=== PATIENT | female | born 1935 | race Caucasian/White ===

== ENCOUNTER → 2016-10-28 | Outpatient (CLI) | payer MEDICARE ==
--- NOTE | 2016-10-29 07:54 | MM ---
Reason for exam: screening (asymptomatic). Last mammogram was performed 1 year and 4 months ago. History: Patient is postmenopausal and has history of other cancer at age 72. Benign MG stereo VAD BX RT of the right breast, July 19, 2015. Benign excisional biopsy of the right breast. Took estrogen for 5 years. Physical Findings: A clinical breast exam by your physician is recommended on an annual basis and results should be correlated with mammographic findings. MG 3D Screening Mammo W/Cad Bilateral CC and MLO view(s) were taken. XCCL view(s) were taken of the right breast. Prior study comparison: July 13, 2015, right breast MG work up mamm w CAD RT. July 07, 2015, bilateral MG screening mammo w CAD. There are scattered fibroglandular densities. Finding: There are grouped/clustered calcifications in the right breast. Previous mammotome biopsy in the right breast. There is a chronic nodularity in the right breast. Targeted calcifications on right breast not biopsied. ASSESSMENT: Suspicious, BI-RAD 4 RECOMMENDATION: Stereotactic core biopsy of the right breast.
== END | disposition home or self-care (01) ==
LOC: RADMAMWWP 09:34
PROVIDERS: ATTEND Internal Medicine Geriatric Medicine
DX: Z12.31 Encounter for screening mammogram for malignant neoplasm of breast (principal); R92.8 Other abnormal and inconclusive findings on diagnostic imaging of breast
CPT/HCPCS: 77063; G0202

== ENCOUNTER → 2016-12-24 | Outpatient (CLI) | payer MEDICARE ==
[2016-12-24 12:19] LABS: Blood Urea Nitrogen 16 mg/dL (7-17); Non-African American GFR(MDRD) >60 (>60 ml/min/1.73 sqM)
--- NOTE | 2016-12-24 13:43 | CT ---
EXAMINATION TYPE: CT abdomen pelvis wo/w con DATE OF EXAM: 12/24/2016 HISTORY: Generalized pain with swelling around the waist x's [address] DLP: 1179.5mGycm Automated Exposure Control for Dose Reduction was Utilized. CONTRAST: CT scan of the abdomen and pelvis are performed with oral and without and with IV Contrast, patient i njected with 100 mL of Omnipaque 300. COMPARISON: None. FINDINGS: LUNG BASES: No significant abnormality is appreciated. LIVER/GB: There is a 3.6 x 3.0 cm heterogeneous hypodense lesion near gallbladder fossa that shows pr ogressive centripetal filling consistent with hemangioma. There is subcentimeter hypodense lesion pos terior right hepatic dome on image 18 is too small to further characterize per presumed benign. PANCREAS: No significant abnormality is seen. SPLEEN: No significant abnormality is seen. ADRENALS: There is 2.4 x 1.8 cm left adrenal mass on axial image 19, Hounsfield units average 11 on n oncontrast study. There is enhancement up to 79-85 with washout to 51-52 Hounsfield units. KIDNEYS: No renal stones are evident on noncontrast study. Postcontrast images show symmetric cortica l medullary uptake and excretion without evidence of hydronephrosis bilaterally. There is 1.0 cm low dense lesion suspected simple cyst medially lower pole level left kidney on series 8 image 36. BOWEL: Oral contrast reaches level of mid transverse colon. There is no suspicious small or large bow el dilatation. There is focal gas-filled prominence of the distal sigmoid colon near rectal junction. No obstructing mass is clearly seen. Sigmoid colonic diverticulosis is present. There is no CT evide nce for acute diverticulitis. UTERUS/ADNEXA: Uterus is surgically absent or markedly atrophic in appearance. Scattered pelvic phleb oliths are seen. LYMPH NODES: No greater than 1cm abdominal or pelvic lymph nodes are appreciated. OSSEOUS STRUCTURES: History is age indeterminate advanced compression type fracture deformity at T12 level. Some sclerosis is present but there is linear lucency also identified. There is posterior retr opulsion of superior bony fragment into spinal canal central and right paracentral region seen best o n sagittal image 65. OTHER: There is mild calcified plaque of the abdominal aorta and branch vessels. IMPRESSION: 1. No ascites is seen. No significant acute finding is seen to account for patient's symptoms. 2. Age-indeterminate but possible acute component to advanced compression type fracture at T12 level with some posterior retropulsion of ossific fragments into anterior spinal canal. Clinical correlatio n advised. 3. Nonspecific 2.4 cm left adrenal mass, malignant etiology is not excluded, further investigation wi th follow-up adrenal protocol CT or MRI is advised. 4. Sigmoid colonic diverticulosis without CT evidence for acute diverticulitis. 5. Incidental 3.6 cm hepatic hemangioma.
--- NOTE | 2016-12-24 14:03 | XR ---
Thoracic spine HISTORY: Pain 3 views of the thoracic spine, correlation to CT abdomen pelvis 12/24/2016 Compression deformity present at T12, loss of height centrally to approximately 50%. There is retropu lsion present. Multilevel spondylosis is present. Bone mineralization is reduced. The spinal curvatur e. IMPRESSION: T12 compression fracture of indeterminate age. Osteopenia, degenerative disc disease.
== END | disposition home or self-care (01) ==
LOC: RADCTMAIN 11:17
PROVIDERS: ATTEND Internal Medicine Geriatric Medicine
DX: K57.30 Diverticulosis of large intestine without perforation or abscess without bleeding (principal); D18.03 Hemangioma of intra-abdominal structures; S22.080A Wedge compression fracture of T11-T12 vertebra, initial encounter for closed fracture; M51.34 Other intervertebral disc degeneration, thoracic region; M85.88 Other specified disorders of bone density and structure, other site
CPT/HCPCS: 82565; 84520; 72072; 74178; 36415; Q9967

== ENCOUNTER → 2018-03-04 | Outpatient (CLI) | payer MEDICARE ==
--- NOTE | 2018-03-05 08:53 | MR ---
EXAMINATION TYPE: MR abdomen wo/w con DATE OF EXAM: 03/04/2018 COMPARISON: CT abdomen and pelvis January 30, 2018 and older CTs. HISTORY: Adrenal gland disorder, unspecified CONTRAST: Standard multiplanar, multisequence MRI departmental protocol utilizing 7 mL intravenous Gadavist esvin olinium contrast. FINDINGS: ADRENALS: Right adrenal gland is normal in size. There is redemonstration of left adrenal mass measur ing 2.5 x 2.0 cm axial image 66 series 303. The mass shows diffuse signal dropout consistent with sam ign lipid rich adenoma. OTHER: Mild cardiomegaly is redemonstrated. Within the liver there is redemonstration of a hemangioma measuring 3.0 x 3.0 x 3.3 cm on axial image 118 and coronal image 10 series 401 and 201 respectively . There are few additional round subcentimeter thin-walled cysts scattered throughout the remainder o f the liver. The spleen, gallbladder, and pancreas are felt within normal limits. There are a few simple appearing cysts scattered throughout the left kidney, largest is medial lower pole level without enhancement m easuring 1.2 cm image 133 series 701, not completely T2 hyperintense suggests possible small proteina ceous component. No suspicious small or large bowel dilatation is present. No concerning abdominal fluid collection is seen. Slight underlying scoliotic curvature with multilevel spurring in this thoracolumbar spine is noted. 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
== END | disposition home or self-care (01) ==
LOC: RADMRIMAIN 09:05
PROVIDERS: ATTEND Internal Medicine
DX: E27.8 Other specified disorders of adrenal gland (principal)
CPT/HCPCS: 74183; A9581

== ENCOUNTER → 2018-03-12 | Outpatient (CLI) | payer MEDICARE ==
--- NOTE | 2018-03-12 18:46 | BD ---
EXAMINATION TYPE: Axial Bone Density DATE OF EXAM: 03/12/2018 COMPARISON: 02.02.2016 CLINICAL HISTORY: 82 YR OLD FEMALE.....ICD-10 CODE: M81.0 AGE RELATED OSTEOPOROSIS Height: 60 Weight: 152 FRAX RISK QUESTIONS: History of Fracture in Adulthood: YES Secondary Osteoporosis: YES 3. Menopause before 45: YES, AT 41 RISK FACTORS HISTORY OF: FRACTURE OF FOOT AND ANKLE....2017 Diet low in dairy products/other sources of calcium: YES Postmenopausal woman: ELZBIETA 41 YRS OLD Lost more than 2 inches in height since high school: YES MEDICATIONS: RECLAST INFUSION 2 YRS AGO.....DUE FOR ANOTHER THIS YR Additional Medications: BP MEDS, CALCIUM AND VIT D, Additional History: PARATOID GLAND REMOVED, HYPERTENSION. EXAM MEASUREMENTS: Bone mineral densitometry was performed using the mktg System. Bone mineral density as measured about the Lumbar spine is: ----- L1-L4(G/cm2): 1.105 T Score Values are as follows: ----- L1: -1.1 ----- L2: -1.1 ----- L3: -0.4 ----- L4: -0.2 ----- L1-L4: -0.6 Bone mineral density has: Increased 1.4% since study of: 02.02.2016 Bone mineral density about the R hip (g/cm2): 0.891 Bone mineral density about the L hip (g/cm2): 0.808 T Score values are as follows: -----R Neck: -2.2 -----L Neck: -2.4 -----R Total: -0.9 -----L Total: -1.6 Bone mineral density has: Increased 0.2% since study of: 02.02.2016 FRAX%s: THERE IS A 25.5% CHANCE FOR A MAJOR OSTEOPOROTIC FX AND A 8.4% FOR HIP FX.....PROBABILITY OF FX IN 10 YRS TIME IMPRESSION: Osteopenia (T Score between -2.5 and -1). There is slightly increased risk of fracture and the patient may be considered for treatment. Re-Screen 2-5 years. NOTE: T-SCORE=SD OF THE YOUNG ADULT MEAN.
--- NOTE | 2018-03-13 11:59 | MM ---
Reason for exam: screening (asymptomatic). Last mammogram was performed 1 year and 4 months ago. History: Patient is postmenopausal and has history of other cancer at age 72. Benign MG stereo VAD BX RT of the right breast, July 19, 2015. Benign excisional biopsy of the right breast. Took estrogen for 5 years. Physical Findings: A clinical breast exam by your physician is recommended on an annual basis and results should be correlated with mammographic findings. MG 3D Screening Mammo W/Cad Bilateral CC and MLO view(s) were taken. Prior study comparison: October 28, 2016, bilateral MG 3d screening mammo w/cad. July 13, 2015, right breast MG work up mamm w CAD RT. The breast tissue is heterogeneously dense. This may lower the sensitivity of mammography. Stable benign calcifications. There is no discrete abnormality. No significant changes when compared with prior studies. ASSESSMENT: Benign, BI-RAD 2 RECOMMENDATION: Routine screening mammogram of both breasts in 1 year.
== END | disposition home or self-care (01) ==
LOC: RADMAMWWP 14:38
PROVIDERS: ATTEND Internal Medicine Geriatric Medicine
DX: Z12.31 Encounter for screening mammogram for malignant neoplasm of breast (principal); M85.80 Other specified disorders of bone density and structure, unspecified site; M81.0 Age-related osteoporosis without current pathological fracture
CPT/HCPCS: 77063; 77067; 77080

== ENCOUNTER → 2019-04-01 | Outpatient (CLI) | payer MEDICARE ==
--- NOTE | 2019-04-01 11:51 | FL ---
EXAMINATION TYPE: FL barium swallow DATE OF EXAM: 04/01/2019 CLINICAL HISTORY: Midsternal chest pain and dysphagia for 3 weeks TECHNIQUE: A double contrast esophagram is performed utilizing air and barium. A total of 1 minute and 32 seconds of fluoroscopic time was utilized during procedure. 37 fluoroscopic images were saved during the examination. COMPARISON: None FINDINGS: There is some impression on the posterior esophagus by anterior cervical osteophytes. Few t ransient esophageal spasms are seen otherwise the esophagus shows normal motility and emptying into t he stomach. No evidence of hiatal hernia or stricture noted. No significant gastroesophageal reflux was seen during real time performance of this study. IMPRESSION: Few transient esophageal spasm, otherwise unremarkable exam.
== END | disposition home or self-care (01) ==
LOC: RADUSWWP 10:47
PROVIDERS: ATTEND Internal Medicine Geriatric Medicine
DX: K22.4 Dyskinesia of esophagus (principal); Q40.1 Congenital hiatus hernia
CPT/HCPCS: 74220

== ENCOUNTER → 2019-04-09 | Outpatient (CLI) | payer MEDICARE ==
--- NOTE | 2019-04-12 09:09 | MM ---
Reason for exam: screening (asymptomatic). Last mammogram was performed 1 year and 1 month ago. History: Patient is postmenopausal and has history of other cancer at age 72. Benign MG stereo VAD BX RT of the right breast, July 19, 2015. Benign excisional biopsy of the right breast. Took estrogen for 5 years. Physical Findings: A clinical breast exam by your physician is recommended on an annual basis and results should be correlated with mammographic findings. MG 3D Screening Mammo W/Cad Bilateral CC and MLO view(s) were taken. Prior study comparison: March 12, 2018, bilateral MG 3d screening mammo w/cad. October 28, 2016, bilateral MG 3d screening mammo w/cad. The breast tissue is heterogeneously dense. This may lower the sensitivity of mammography. Benign appearing bilateral calcifications. No suspicious abnormality. Right biopsy marker noted. No significant changes when compared with prior studies. ASSESSMENT: Benign, BI-RAD 2 RECOMMENDATION: Routine screening mammogram of both breasts in 1 year.
== END | disposition home or self-care (01) ==
LOC: RADMAMWWP 10:46
PROVIDERS: ATTEND Internal Medicine Geriatric Medicine
DX: Z12.31 Encounter for screening mammogram for malignant neoplasm of breast (principal)
CPT/HCPCS: 77063; 77067

== ENCOUNTER 2020-12-04 11:44 | Emergency (ER) | payer MEDICARE ==
[2020-12-04 11:49] VITALS: TEMP 97.7
[2020-12-04] MEDS ORDERED: ASPIRIN 81 MG PO STA (12:21)
[2020-12-04] MEDS ORDERED: KETOROLAC 15 MG/ML 1 ML VIAL IVP STA (12:22)
--- NOTE | 2020-12-04 13:01 | XR ---
EXAMINATION TYPE: XR chest 1V portable DATE OF EXAM: 12/04/2020 HISTORY: Shortness of breath. COMPARISON: None. TECHNIQUE: Single view of the chest is submitted. FINDINGS: Demonstrated are scattered senescent parenchymal change. There is no evidence for focal infiltrate. The heart is stable. Hilar and mediastinal structures are within normal limits. Degenerative changes are seen of the dorsal spine. IMPRESSION: 1. Chronic changes without evidence for acute pulmonary disease.
[2020-12-04 13:20] LABS: Basophils % (A) 0 %; Eosinophils # (A) 0.1 k/uL (0-0.7); Eosinophils % (A) 2 %; HCT 37.3 % (34.0-46.0); HGB 13.2 gm/dL (11.4-16.0); Lymphocytes # (A) 2.2 k/uL (1.0-4.8); Lymphocytes % (A) 30 %; MCH 31.7 pg (25.0-35.0); MCHC 35.4 g/dL (31.0-37.0); MCV 89.6 fL (80.0-100.0); Mean Platelet Volume 7.4; Monocytes # (A) 0.4 k/uL (0-1.0); Monocytes % (A) 5 %; Neutrophils # (A) 4.7 k/uL (1.3-7.7); Neutrophils % (A) 62 %; Platelet Count 248 k/uL (150-450); RBC 4.17 m/uL (3.80-5.40); RDW 12.9 % (11.5-15.5); WBC 7.5 k/uL (3.8-10.6)
[2020-12-04 13:36] LABS: Albumin 4.8 g/dL (3.5-5.0); Calcium 10.3 mg/dL (8.4-10.2); Total Bilirubin 0.6 mg/dL (0.2-1.3); Total Protein 7.3 g/dL (6.3-8.2)
[2020-12-04 13:40] LABS: Potassium 3.9 mmol/L (3.5-5.1)
--- NOTE | 2020-12-04 13:40 | ED ---
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 She describes it as an achy, sharp sensation located in her left neck along one of her neck muscles that is palpable. She states it is worse with head movement, particularly turning to the right Cusson's a stretching sensation. She denies any radiation of the pain down into her back or chest. She states she did feel somewhat short of breath earlier. She also describes subjective bilateral upper extremity weakness when the pain started earlier. She denies any fevers, chills, sick contacts. She denies any numbness, weakness otherwise. She was able to ambulate. Denies any worsening blurry vision. She denies any abdominal pain, nausea, vomiting, urinary complaints. Patient otherwise has no acute complaints at this time is concerned about the pain in her neck. She called her PCP who instructed her to come to the emergency department for an EKG. patient did receive her COVID-19 vaccination multiple months ago, completing both doses. - Related Data Home Medications Medication Instructions Recorded Confirmed Multivitamins, Thera [Multivitamin] 1 tab PO HS 05/06/14 12/04/20 Calcium Carbonate/Vitamin D3 1 tab PO HS 07/17/15 12/04/20 [Calcium 600 + Vit D Tablet] Biotin 10,000 mcg PO HS 12/04/20 12/04/20 Chlorthalidone [Hygroton] 25 mg PO Q48H 12/04/20 12/04/20 Valsartan 320 mg PO DAILY 12/04/20 12/04/20 amLODIPine [Norvasc] 10 mg PO DAILY 12/04/20 12/04/20 lamoTRIgine [LaMICtal] 100 mg PO BID 12/04/20 12/04/20 Previous Rx's Medication Instructions Recorded Ibuprofen [Motrin] 800 mg PO Q8H PRN #21 tab 12/04/20 Lidocaine 5% Patch [Lidoderm 5% 1 patch TOPICAL DAILY #7 patch 12/04/20 Patch] methocarbamoL [Robaxin] 1,000 mg PO TID #42 tab 12/04/20 Allergies Allergy/AdvReac Type Severity Reaction Status Date / Time No Known Allergies Allergy Verified 12/04/20 12:45 Review of Systems ROS Statement: Those systems with pertinent positive or pertinent negative responses have been documented in the HPI. Review of Systems: CONST: Denies fever EYES: Denies blurry vision ENT: Endorses neck pain C/V: Denies Chest pain RESP: Endorses subjective shortness of breath GI: Denies abdominal pain : Denies dysuria SKIN: Denies rash. MSK: Denies joint pain. NEURO: Denies headache ROS Other: All systems not noted in ROS Statement are negative. 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 HEAD: Normal with no signs of head trauma. EYES: PERRLA, EOMI, conjunctiva normal, no discharge. ENT: Hearing is grossly intact. Patient has a normal oropharynx. It has a p alpable left trapezius muscle tenderness to palpation over the superior aspect. It is worse with turning of the head to the right into the left. No obvious masses appreciated. Trachea is midline. No stridor auscultated. RESPIRATORY: Clear breath sounds bilaterally. No wheezes, rales, or rhonchi. C/V: Patient is mildly tachycardic with regular rhythm. S1 and S2 auscultated. Peripheral pulses are 2+ and intact throughout. No peripheral edema. ABD: Abd is soft, nontender, nondistended EXT: Normal range of motion, no obvious deformity SKIN: No rashes or lesions observed on exposed skin. NEURO: Alert and oriented 4. Cranial nerves II through XII intact. No focal sensory or strength deficits. Patient's cerebellar function is intact. Pupils are 3 mm and equally reactive. Patient has 5 out of 5 strength in all 4 extremity. Limitations: physical limitation Course Vital Signs 12/04/20 12/04/20 12/04/20 11:45 12:15 12:54 Temperature 97.7 F Pulse Rate 105 H 86 Pulse Rate [ 86 [employer]er ] Respiratory 18 16 Rate Blood Pressure 161/78 145/98 O2 Sat by Pulse 99 98 Oximetry 12/04/20 12/04/20 14:01 15:40 Temperature Pulse Rate 80 75 Pulse Rate [ [employer]er ] Respiratory 18 18 Rate Blood Pressure 134/65 122/60 O2 Sat by Pulse 97 98 Oximetry EKG Findings - EKG Comments: EKG Findings:: 12-lead Electrocardiogram Interpretation Note. EKG was reviewed and interpreted by myself. 12-lead ECG performed at 1154 is interpreted by me as revealing normal sinus rhythm at a rate of default value beats per minute. Normal sinus rhythm. NE interval is 180 ms, QRS duration is 72 ms, QTc is 442 ms. There were no ST or T wave abnormalities to suggest myocardial ischemia or injury. R wave progression across the precordium was satisfactory. By my interpretation this EKG is non-diagnostic for acute ischemia. Medical Decision Making - Medical Decision Making Based on the patient's presentation and physical exam, concerned for possible cardiac etiology for her current neck pain and dyspnea but I cannot rule out the possibility of pulmonary embolism with her dyspnea. It is possible she is expr essing a musculoskeletal strain or sprain. I did recommend we obtain a cardiac workup which includes a d-dimer as the patient is low risk. She does not PERC out. Wells score for PE is low at 1.5. She'll be connected to continuous cardiac monitoring. We will obtain EKG and chest x-ray. Patient was in agreement with this plan. Patient's EKG showed no signs of acute ischemia. Chest x-ray revealed no acute cardio primary process. Laboratory studies were remarkable for a negative troponin, a mild hypercalcemia at 10.3, as well as in elevated ddimer of 0.89. This spoke with the patient regarding her elevated d-dimer and I recommended that we obtain a CT angiogram of the thorax to rule out pulmonary embolism. The salicylates is slightly evaluate her aorta. She was in agreement with this plan. Patient's CT angiogram was negative for acute pulmonary embolism. Patient does endorse metastatic disease as she does have a history of lesions in her liver with her history of cancer. On reevaluation, patient is feeling improved. She states that her weakness has resolved and says her shortness of breath. She states that her neck discomfort is also improved at this time and she has better range of motion of her left shoulder. We did discuss that she is likely experiencing a musculoskeletal cause for her current symptoms. The remainder of the patient's laboratory studies were relatively unremarkable and the cardiac workup is negative. I spoke with the patient and explained that I believe it is safe for her to be discharged home at this time. She was in agreement with the plan. I did recommend close follow-up with her PCP. I will provide the patient with a prescription for Robaxin, lidocaine patch, ibuprofen. I instructed the patient to follow up with their PCP in the next 3 days. . I explained that the patient should return to the emergency department if they experience any worsening symptoms. Strict return precautions were discussed with the patient. The patient expressed understanding of these instructions. I answered all questions that the patient had. The patient was discharged home in improved condition with their prescriptions and follow up information. - Lab Data Result diagrams: 12/04/20 12:30 12/04/20 12:30 Lab Results 12/04/20 12/04/20 12/04/20 Range/Units 12:30 12:30 12:30 WBC 7.5 (3.8-10.6) k/uL RBC 4.17 (3.80-5.40) m/uL Hgb 13.2 (11.4-16.0) gm/dL Hct 37.3 (34.0-46.0) % MCV 89.6 (80.0-100.0) fL MCH 31.7 (25.0-35.0) pg MCHC 35.4 (31.0-37.0) g/dL RDW 12.9 (11.5-15.5) % Plt Count 248 (150-450) k/uL MPV 7.4 Neutrophils % 62 % Lymphocytes % 30 % Monocytes % 5 % Eosinophils % 2 % Basophils % 0 % Neutrophils # 4.7 (1.3-7.7) k/uL Lymphocytes # 2.2 (1.0-4.8) k/uL Monocytes # 0.4 (0-1.0) k/uL Eosinophils # 0.1 (0-0.7) k/uL Basophils # 0.0 (0-0.2) k/uL PT 10.0 (9.0-12.0) sec INR 0.9 (<1.2) APTT 22.1 (22.0-30.0) sec D-Dimer 0.89 H (<0.60) mg/L FEU Sodium 135 L (137-145) mmol/L Potassium 3.9 (3.5-5.1) mmol/L Chloride 98 (98-107) mmol/L Carbon Dioxide 26 (22-30) mmol/L Anion Gap 11 mmol/L BUN 18 H (7-17) mg/dL Creatinine 0.97 (0.52-1.04) mg/dL Est GFR (CKD-EPI)AfAm 62 (>60 ml/min/1.73 sqM) Est GFR (CKD-EPI)NonAf 54 (>60 ml/min/1.73 sqM) Glucose 97 (74-99) mg/dL Calcium 10.3 H (8.4-10.2) mg/dL Magnesium 2.0 (1.6-2.3) mg/dL Total Bilirubin 0.6 (0.2-1.3) mg/dL AST 28 (14-36) U/L ALT 14 (4-34) U/L Alkaline Phosphatase 83 (38-126) U/L Troponin I (0.000-0.034) ng/mL NT-Pro-B Natriuret Pep pg/mL Total Protein 7.3 (6.3-8.2) g/dL Albumin 4.8 (3.5-5.0) g/dL 12/04/20 12/04/20 Range/Units 12:30 12:30 WBC (3.8-10.6) k/uL RBC (3.80-5.40) m/uL Hgb (11.4-16.0) gm/dL Hct (34.0-46.0) % MCV (80.0-100.0) fL MCH (25.0-35.0) pg MCHC (31.0-37.0) g/dL RDW (11.5-15.5) % Plt Count (150-450) k/uL MPV Neutrophils % % Lymphocytes % % Monocytes % % Eosinophils % % Basophils % % Neutrophils # (1.3-7.7) k/uL Lymphocytes # (1.0-4.8) k/uL Monocytes # (0-1.0) k/uL Eosinophils # (0-0.7) k/uL Basophils # (0-0.2) k/uL PT (9.0-12.0) sec INR (<1.2) APTT (22.0-30.0) sec D-Dimer (<0.60) mg/L FEU Sodium (137-145) mmol/L Potassium (3.5-5.1) mmol/L Chloride (98-107) mmol/L Carbon Dioxide (22-30) mmol/L Anion Gap mmol/L BUN (7-17) mg/dL Creatinine (0.52-1.04) mg/dL Est GFR (CKD-EPI)AfAm (>60 ml/min/1.73 sqM) Est GFR (CKD-EPI)NonAf (>60 ml/min/1.73 sqM) Glucose (74-99) mg/dL Calcium (8.4-10.2) mg/dL Magnesium (1.6-2.3) mg/dL Total Bilirubin (0.2-1.3) mg/dL AST (14-36) U/L ALT (4-34) U/L Alkaline Phosphatase (38-126) U/L Troponin I <0.012 (0.000-0.034) ng/mL NT-Pro-B Natriuret Pep 152 pg/mL Total Protein (6.3-8.2) g/dL Albumin (3.5-5.0) g/dL Disposition Clinical Impression: Musculoskeletal pain, Dyspnea, Neck pain, History of cancer Disposition: HOME SELF-CARE Condition: Good Prescriptions: Lidocaine 5% Patch [Lidoderm 5% Patch] 1 patch TOPICAL DAILY #7 patch Ibuprofen [Motrin] 800 mg PO Q8H PRN #21 tab PRN Reason: Pain methocarbamoL [Robaxin] 1,000 mg PO TID #42 tab Is patient prescribed a controlled substance at d/c from ED?: No Referrals: Philip Whitehead MD [Primary Care Provider] - 1-2 days
[2020-12-04 13:43] LABS: INR 0.9 (<1.2); Partial Thromboplastin Time 22.1 sec (22.0-30.0)
[2020-12-04 13:49] LABS: D-Dimer 0.89 mg/L FEU (<0.60)
[2020-12-04] MEDS ORDERED: methocarbamoL 750 MG TAB PO STA (13:57)
[2020-12-04 14:01] VITALS: RESP 18
--- NOTE | 2020-12-04 14:37 | CT ---
EXAMINATION TYPE: CT angio chest DATE OF EXAM: 12/04/2020 COMPARISON: None HISTORY: Elevated d-dimer CONTRAST: CT chest with contrast and 3D reconstruction with MIP imaging is performed with IV Contrast, patient injected with 100 mL of Isovue 370. Contrast-enhanced CT of the chest was performed through the course of the pulmonary arteries with marlin g and mediastinal window settings submitted. 3D reconstruction with MIP imaging was also performed. PULMONARY ARTERIES: The pulmonary arteries and their major tributaries are patent. I do not see betsy dence for sizable filling defect to suggest pulmonary embolic process. LUNGS: The lungs are clear and free of infiltrate. No evidence for atelectasis. No pulmonary nodule or mass is detected. No pleural effusion. MEDIASTINUM: Thoracic aorta is of normal caliber,however, evaluation is limited given timing of the contrast bolus. If there is concern for thoracic aortic pathology consider RHODA. Correlate clinicall y . The heart is not enlarged. No evidence for mediastinal mass. No mediastinal lymph nodes greater than 1cm. HILAR STRUCTURES: No evidence for mass. No hilar lymph nodes greater than 1 cm. UPPER ABDOMEN: Hypoattenuating lesions are seen within the liver which do not appear compatible with cysts. Is there a history of primary malignancy? Metastatic disease is not excluded. In addition ther e is a left adrenal mass measuring 3 cm. Stable compression fracture of T12 seen on prior CT of 018. IMPRESSION: 1. No evidence for Pulmonary embolism at this time. 2. Correlate for metastatic disease as discussed above.
[2020-12-04 15:41] VITALS: BP 122/60; PULSE 75
== END 2020-12-04 15:41 | disposition home or self-care (01) ==
LOC: EC 11:44
DX: R06.00 Dyspnea, unspecified (principal); M54.2 Cervicalgia; M79.18 Myalgia, other site; I10 Essential (primary) hypertension; G40.909 Epilepsy, unspecified, not intractable, without status epilepticus; M81.0 Age-related osteoporosis without current pathological fracture; Z79.1 Long term (current) use of non-steroidal anti-inflammatories (NSAID); Z79.899 Other long term (current) drug therapy; Z85.818 Personal history of malignant neoplasm of other sites of lip, oral cavity, and pharynx
CPT/HCPCS: 36415; 93005; 85379; 83880; 80053; 83735; 84484; 85025; 85610; 85730; 71045; 71275; 99285; 96374; J1885; Q9967

== ENCOUNTER → 2022-03-27 | Outpatient (CLI) | payer MEDICARE ==
--- NOTE | 2022-03-27 11:29 | BD ---
EXAMINATION TYPE: Axial Bone Density DATE OF EXAM: 03/27/2022 COMPARISON: 03/12/2018 CLINICAL HISTORY: 86 years year old Female. ICD-10 CODE: M81.0 Osteoporosis Height: 59.7 IN Weight: 144 LBS FRAX RISK QUESTIONS: History of Fracture in Adulthood: RT FOOT FX AGE 81 Secondary Osteoporosis: 3. Menopause before 45: TOTAL HYST AGE 44 RISK FACTORS HISTORY OF: Active: YES Diet low in dairy products/other sources of calcium: YES Postmenopausal woman: TOTAL HYST AGE 44 Take estrogen and/or progesterone medications: NOT NOW How long: TOOK FOR 2 YEARS Lost more than 2 inches in height since high school: YES 3 " MEDICATIONS: Additional Medications: CALCIUM, VIT D, BLOOD PRESSURE MEDS, LIPITOR, SEIZURE MEDS Additional History: [facility] EXAM MEASUREMENTS: Bone mineral densitometry was performed using the [employer] System. Bone mineral density as measured about the Lumbar spine is: ----- L1-L4(G/cm2): 1.069 T Score Values are as follows: ----- L1: -1.8 ----- L2: -1.3 ----- L3: -0.9 ----- L4: -0.2 ----- L1-L4: -0.9 Bone mineral density has: Decreased -2.0% since study of: 03/12/2018 Bone mineral density about the R hip (g/cm2): 0.718 Bone mineral density about the L hip (g/cm2): 0.657 T Score values are as follows: -----R Neck: -2.3 -----L Neck: -2.7 -----R Total: -1.1 -----L Total: -1.7 Bone mineral density has: Decreased -2.5% since study of: 03/12/2018 FRAX%s: The graph provided illustrates a 26.8 chance for a major osteoporotic fx and a 9.6 chance for the hips probability for fx in 10 years time. IMPRESSION: Osteopenia (T Score between -2.5 and -1). There is slightly increased risk of fracture and the patient may be considered for treatment. Re-Screen 2-5 years. NOTE: T-SCORE=SD OF THE YOUNG ADULT MEAN.
--- NOTE | 2022-03-28 21:16 | MM ---
Reason for Exam: Screening (asymptomatic). Last mammogram was performed 3 year(s) and 0 month(s) ago. Patient History: Menarche at age 12. First Full-Term at age 21. Hysterectomy at age 36. Postmenopausal. Other cancer, age 72. Patient used Estrogen for 5 years. Benign Excisional Biopsy on the right side. 07/19/2015, Benign Core Biopsy on the right side. Prior Study Comparison: 10/28/2016 Bilateral Screening Mammogram, [facility]. 03/12/2018 Bilateral Screening Mammogram, [facility]. 04/09/2019 Bilateral Screening Mammogram, [facility]. Tissue Density: There are scattered fibroglandular densities. Findings: Analyzed By CAD. Benign vascular calcifications on both sides. Small microcalcifications upper outer quadrant right breast with adjacent microclip from prior biopsy. No significant change from prior exams. Overall Assessment: Benign, BI-RAD 2 Management: Screening Mammogram of both breasts in 1 year. 1. Patient should continue monthly self breast exams. 2. A clinical breast exam by your physician is recommended on an annual basis. 3. This exam should not preclude additional follow-up of suspicious palpable abnormalities. Electronically signed and approved by: Janette Mathis M.D. Radiologist
== END | disposition home or self-care (01) ==
LOC: RADBDWWP 09:48
PROVIDERS: ATTEND Internal Medicine Geriatric Medicine
DX: Z12.31 Encounter for screening mammogram for malignant neoplasm of breast (principal); M85.89 Other specified disorders of bone density and structure, multiple sites
CPT/HCPCS: 77063; 77067; 77080

== ENCOUNTER → 2023-03-31 | Outpatient (CLI) | payer MEDICARE ==
--- NOTE | 2023-03-31 09:59 | MM ---
Reason for Exam: Screening (asymptomatic). Last screening mammogram was performed 12 month(s) ago. Patient History: Menarche at age 12. First Full-Term at age 21. Hysterectomy at age 36. Postmenopausal. Other cancer, age 72. Patient used Estrogen for 5 years. Benign Excisional Biopsy on the right side. 07/19/2015, Benign Core Biopsy on the right side. Prior Study Comparison: 03/12/2018 Bilateral Screening Mammogram, [facility]. 04/09/2019 Bilateral Screening Mammogram, [facility]. 03/27/2022 Bilateral MG 3D screening mammo w/cad, [facility]. Tissue Density: The breast tissue is heterogeneously dense. This may lower the sensitivity of mammography. Findings: Analyzed By CAD. Right breast biopsy clip. There is no suspicious group of microcalcifications or new suspicious mass. Benign-appearing calcifications right breast. Overall Assessment: Benign, BI-RAD 2 Management: Screening Mammogram of both breasts in [address] [facility] will attempt to contact patient to return for supplemental views and ultrasound if indicated. Patient should continue monthly self-breast exams. A clinical breast exam by your physician is recommended on an annual basis. This exam should not preclude additional follow-up of suspicious palpable abnormalities. Note on Lila scores and lifetime risk: 1. A Lila score greater than 3% is considered moderate risk. If this is the case, consider specialist referral to assess eligibility for a risk reducing agent. 2. If overall lifetime risk for the development of breast cancer is 20% or higher, the patient may qualify for future screening with alternating mammogram and breast MRI. Electronically signed and approved by: Delfino Dupree DO
== END | disposition home or self-care (01) ==
LOC: RADMAMWWP 09:30
PROVIDERS: ATTEND Internal Medicine Geriatric Medicine
DX: Z12.31 Encounter for screening mammogram for malignant neoplasm of breast (principal); Z78.0 Asymptomatic menopausal state
CPT/HCPCS: 77063; 77067

== ENCOUNTER 2024-02-21 17:44 | Emergency (ER) | payer MEDICARE ==
--- NOTE | 2024-02-21 18:16 | ED ---
General Adult HPI - General Chief complaint: Recheck/Abnormal Lab/Rx Stated complaint: Hypertension Time Seen by Provider: 02/21/24 17:46 Source: patient, EMS, RN notes reviewed, old records reviewed Mode of arrival: EMS Limitations: no limitations - History of Present Illness Initial comments: 88-year-old female presents from home with chief complaint of hypertension. Patient does have history of hypertension she is on multiple medications which she has been compliant with. She denies chest pain. She reports she has had some palpitations and does report a headache throughout the day today. States her blood pressure at home was 200/100. No chest pain. No dyspnea. No focal numbness or weakness. - Related Data Home Medications Medication Instructions Recorded Confirmed Atorvastatin [Lipitor] 10 mg PO DAILY 02/21/24 02/21/24 Calcium Carbonate/Vitamin D3 1 tab PO HS 02/21/24 02/21/24 [Calcium 600 mg-D3 20 mcg (800 unit)] Multivitamin With Collagen 3 tab PO DAILY 02/21/24 02/21/24 Valsartan [Diovan] 160 mg PO DAILY 02/21/24 02/21/24 Vit C/E/Zn/Coppr/Lutein/Zeaxan 1 cap PO BID 02/21/24 02/21/24 [Preservision Areds 2 Softgel] amLODIPine [Norvasc] 5 mg PO DAILY 02/21/24 02/21/24 hydroCHLOROthiazide [Hydrodiuril] 12.5 mg PO DAILY 02/21/24 02/21/24 lamoTRIgine [LaMICtal] 150 mg PO BID 02/21/24 02/21/24 Allergies Allergy/AdvReac Type Severity Reaction Status Date / Time No Known Allergies Allergy Verified 02/21/24 18:36 Review of Systems ROS Statement: Those systems with pertinent positive or pertinent negative responses have been documented in the HPI. ROS Other: All systems not noted in ROS Statement are negative. 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 Absent: tenderness, meningismus Respiratory exam: Present: normal lung sounds bilaterally. Absent: respiratory distress, wheezes, rales Cardiovascular Exam: Present: regular rate, normal rhythm GI/Abdominal exam: Present: soft. Absent: distended, tenderness, guarding Extremities exam: Present: normal inspection, normal capillary refill Neurological exam: Present: alert, oriented X3, CN II-XII intact. Absent: motor sensory deficit Psychiatric exam: Present: normal affect, normal mood Skin exam: Present: warm, dry, intact. Absent: cyanosis, diaphoretic Course Vital Signs 02/21/24 02/21/24 02/21/24 17:48 17:55 19:25 Temperature 98.6 F 98.9 F Pulse Rate 93 86 96 Respiratory 17 17 17 Rate Blood Pressure 178/86 170/80 187/89 O2 Sat by Pulse 97 98 95 Oximetry Medical Decision Making - Medical Decision Making Was pt. sent in by a medical professional or institution (, PA, SPORTS JOURNALIST, urgent care, hospital, or [facility]...) When possible be specific @ -No Did you speak to anyone other than the patient for history (EMS, parent, family, police, friend...)? What history was obtained from this source @ -No Did you review nursing and triage notes (agree or disagree)? Why? @ -I reviewed and agree with nursing and triage notes Were old charts reviewed (outside hosp., previous admission, EMS record, old EKG, old radiological studies, urgent care reports/EKG's, [facility] records)? Report findings @ -No old charts were reviewed Differential Diagnosis hypertensive urgency, hypertensive emergency, intracranial hemorrhage. EKG interpreted by me (3pts min.). @ -Sinus Rhythm rate of 82, WA interval 192, QRS duration 78, QTc 393, ST segment elevation X-rays interpreted by me (1pt min.). @ -None done CT interpreted by me (1pt min.). @ -CT brain without contrast showing right temporal occipital hyperdensity consistent with intracranial hemorrhage U/S interpreted by me (1pt. min.). @ -None done What testing was considered but not performed or refused? (CT, X-rays, U/S, labs)? Why? @ -None What meds were considered but not given or refused? Why? @ -None Did you discuss the management of the patient with other professionals (professionals i.e. , PA, SPORTS JOURNALIST, lab, RT, psych nurse, nursing home social worker, fingernail technician, teacher, credit administration officer, case sealer)? Give summary @ -Case discussed with the transfer team at [facility], Dr. Field, will accept admission recommends systolic blood pressure less than 160 Was smoking cessation discussed for >3mins.? @ -No Was critical care preformed (if so, how long)? @ -Yes, 35 minutes Were there social determinants of health that impacted care today? How? (Homelessness, low income, unemployed, alcoholism, drug addiction, transportation, low edu. Level, literacy, decrease access to med. care, longterm, rehab)? @ -No Was there de-escalation of care discussed even if they declined (Discuss DNR or withdrawal of care, Hospice)? DNR status @ -No What co-morbidities impacted this encounter? (DM, HTN, Smoking, COPD, CAD, Cancer, CVA, ARF, Chemo, Hep., AIDS, mental health diagnosis, sleep apnea, morbid obesity)? @ -[Hypertension, reported history of meningioma Was patient admitted / discharged? Hospital course, mention meds given and route, prescriptions, significant lab abnormalities, going to OR and other pertinent info. @ -88-year-old female history of hypertension presenting with elevated blood pressure and headache. Headache has been present for the past 16+ hours. No focal numbness or weakness. NIH of 0. Patient is hypertensive but well- appearing. She is alert, interactive GCS 15. Minimal complaints she has EKG shows sinus rhythm. Normal CBC, CMP shows hyponatremia [address] Head [address] is performed which does show possibility of intracranial hemorrhage in the right temporal occipital lobe measuring less than 1 cm without midline shift. Given CT findings she will be transferred to [facility], for further evaluation and treatment. She is started on Cardene and given Keppra. Undiagnosed new problem with uncertain prognosis? @ -[No Drug Therapy requiring intensive monitoring for toxicity (Heparin, Nitro, Insulin, Cardizem)? @ -No Were any procedures done? @ -No Diagnosis/symptom? @ -Hypertension, intracranial hemorrhage Acute, or Chronic, or Acute on Chronic? @ -[acute Uncomplicated (without systemic symptoms) or Complicated (systemic symptoms)? @ -complicated Side effects of treatment? @ -No Exacerbation, Progression, or Severe Exacerbation? @ -No Poses a threat to life or bodily function? How? (Chest pain, USA, CA, pneumonia, PE, COPD, DKA, ARF, appy, cholecystitis, CVA, Diverticulitis, Homicidal, Suicidal, threat to staff... and all critical care pts) @ -yes, ICH - Lab Data Result diagrams: 02/21/24 18:07 02/21/24 18:07 Lab Results 02/21/24 02/21/24 02/21/24 Range/Units 18:07 18:07 18:07 WBC 7.9 (3.8-10.6) k/uL RBC 4.14 (3.80-5.40) m/uL Hgb 12.7 (11.4-16.0) gm/dL Hct 37.7 (34.0-46.0) % MCV 90.9 (80.0-100.0) fL MCH 30.7 (25.0-35.0) pg MCHC 33.8 (31.0-37.0) g/dL RDW 12.7 (11.5-15.5) % Plt Count 206 (150-450) k/uL MPV 6.8 Neutrophils % 78 % Lymphocytes % 15 % Monocytes % 6 % Eosinophils % 0 % Basophils % 0 % Neutrophils # 6.2 (1.3-7.7) k/uL Lymphocytes # 1.2 (1.0-4.8) k/uL Monocytes # 0.4 (0-1.0) k/uL Eosinophils # 0.0 (0-0.7) k/uL Basophils # 0.0 (0-0.2) k/uL Sodium 128 L (137-145) mmol/L Potassium 3.7 (3.5-5.1) mmol/L Chloride 94 L (98-107) mmol/L Carbon Dioxide 27 (22-30) mmol/L Anion Gap 7 mmol/L BUN 19 H (7-17) mg/dL Creatinine 0.66 (0.52-1.04) mg/dL Est GFR (CKD-EPI)AfAm >90 (>60 ml/min/1.73 sqM) Est GFR (CKD-EPI)NonAf 79 (>60 ml/min/1.73 sqM) Glucose 102 H (74-99) mg/dL Calcium 9.3 (8.4-10.2) mg/dL Total Bilirubin 1.0 (0.2-1.3) mg/dL AST 25 (14-36) U/L ALT 17 (4-34) U/L Alkaline Phosphatase 67 (38-126) U/L Troponin I <0.012 (0.000-0.034) ng/mL Total Protein 6.4 (6.3-8.2) g/dL Albumin 4.3 (3.5-5.0) g/dL Disposition Clinical Impression: ICH (intracerebral hemorrhage), Hypertensive emergency Disposition: ADMITTED IP TO THIS HOSP Condition: Serious Is patient prescribed a controlled substance at d/c from ED?: No Referrals: Philip Whitehead MD [Primary Care Provider] - 1-2 days Time of Disposition: 19:48 - Out of Hospital Transfer - Req. Specs Out of Hospital Transfer - Requested Specifics: Neurological ICU (Zeferino Sanabria)
[2024-02-21] MEDS: amLODIPine 5 MG TAB PO STA (18:17)
[2024-02-21 18:34] LABS: Basophils % (A) 0 %; Eosinophils % (A) 0 %; HCT 37.7 % (34.0-46.0); HGB 12.7 gm/dL (11.4-16.0); Lymphocytes # (A) 1.2 k/uL (1.0-4.8); Lymphocytes % (A) 15 %; MCH 30.7 pg (25.0-35.0); MCHC 33.8 g/dL (31.0-37.0); MCV 90.9 fL (80.0-100.0); Mean Platelet Volume 6.8; Monocytes # (A) 0.4 k/uL (0-1.0); Monocytes % (A) 6 %; Neutrophils # (A) 6.2 k/uL (1.3-7.7); Neutrophils % (A) 78 %; Platelet Count 206 k/uL (150-450); RBC 4.14 m/uL (3.80-5.40); RDW 12.7 % (11.5-15.5); WBC 7.9 k/uL (3.8-10.6)
[2024-02-21 18:42] LABS: ALT 17 U/L (4-34); AST 25 U/L (14-36); African American GFR (CKD) >90 (>60 ml/min/1.73 sqM); Albumin 4.3 g/dL (3.5-5.0); Alkaline Phosphatase 67 U/L (38-126); Anion Gap 7 mmol/L; Blood Urea Nitrogen 19 mg/dL (7-17); Calcium 9.3 mg/dL (8.4-10.2); Carbon Dioxide 27 mmol/L (22-30); Chloride 94 mmol/L (98-107); Glucose 102 mg/dL (74-99); Non-African American GFR(CKD) 79 (>60 ml/min/1.73 sqM); Potassium 3.7 mmol/L (3.5-5.1); Sodium 128 mmol/L (137-145); Total Protein 6.4 g/dL (6.3-8.2)
[2024-02-21] MEDS: SODIUM CHLORIDE 0.9% 500 ML 500 ML IV ONE (19:04)
[2024-02-21] MEDS ORDERED: levETIRAcetam IV 1,500 MG in SODIUM CHLORIDE 0.9% 250 ML IVPB ONE (19:10)
--- NOTE | 2024-02-21 19:22 | CT ---
EXAMINATION TYPE: CT brain wo con CT DLP: 1059.4 mGycm, Automated exposure control for dose reduction was used. DATE OF EXAM: 02/21/2024 7:01 PM COMPARISON: None available.. CLINICAL INDICATION:Female, 88 years old with history of LOYA/HTN, headache, hypertension TECHNIQUE: Brain: Axial CT images of the brain were obtained with coronal and sagittal reformats created and rev iewed. Contrast used: None. Oral contrast used: None. FINDINGS: Extra-axial spaces: No abnormal extra-axial fluid collections. Basilar cisterns are patent. Ventricular system: Ventricles appear dilated in proportion to the degree of cerebral atrophy. Cerebral parenchyma: Mild/moderate generalized brain atrophy with commensurate enlargement of the oumou tricles and CSF spaces. An 8 mm focus of increased attenuation at the right temporal occipital juncti on, image 27 series 202, concerning for focal hemorrhage which could be hypertension-related; differe ntial does include small vascular malformation. No areas of loss of montanez/white matter distinction or sulcal effacement seen to suggest acute territorial infarction. Cerebellum: No acute abnormality. Mass effect: No evidence of mass effect or midline shift. Intracranial vasculature: Atherosclerotic calcifications of the larger arteries near the skull base. Soft tissues: No acute or concerning abnormality. Visualized orbits: Orbital contents appear grossly intact. Radiodensities along the globes likely s equela of previous ophthalmologic surgery. Calvarium/osseous structures: No evidence of calvarial fracture. Paranasal sinuses and mastoid air cells: Near-complete opacification of the right maxillary sinus wit h some increased attenuation within, likely chronic mucosal thickening with inspissated secretions. N o paranasal sinus fluid accumulation. MRI is more sensitive for detecting acute processes such as infarct, and may be considered if clinica lly warranted. IMPRESSION: An 8 mm focus of increased attenuation at the right temporal occipital junction, concerning for focal hemorrhage. Recommend clinical correlation and follow-up. Dr. Alaniz discussed the above findings with Delfino Sanford MD on 02/21/2024 7:10 PM via tele phone. Read back of the patient's identifying information and the important finding/s was performed. [facility], , 02/21/2024 7:19 PM
[2024-02-21] MEDS: niCARdipine 20 MG in SODIUM CHLORIDE 0.9% 192 ML IV SCH (19:58)
[2024-02-21] MEDS: levETIRAcetam IV 500 MG/5 ML VIAL IVP STA (20:01)
[2024-02-21 20:17] VITALS: PULSE 96
[2024-02-21 20:35] VITALS: BP 131/57; RESP 14; TEMP 97.8
== END 2024-02-21 20:45 | disposition other institution (70) ==
LOC: EC 17:44
CPT/HCPCS: 36415; 70450; 80053; 84484; 85025; 93005; 96361; 96374; 96375; 99291

== ENCOUNTER → 2024-03-10 | Outpatient (CLI) | payer MEDICARE ==
--- NOTE | 2024-03-10 08:43 | US ---
EXAMINATION TYPE: US renal artery duplex complet DATE OF EXAM: 03/10/2024 COMPARISON: NONE CLINICAL INDICATION: Female, 88 years old with history of I10 HYPERTENSION; TECHNIQUE: Grayscale, color Doppler and spectral Doppler imaging of the bilateral renal arteries and kidneys. FINDINGS: MEASUREMENTS: RENAL SIZE: Right Kidney: 9.4 x 3.6 x 4.2cm Left Kidney: 10.0 x 4.0 x 3.9 Right Kidney: wnl Left Kidney: 1.5cm cystic area inferior pole Abd Aorta: atherosclerotic changes RESISTANCE INDEX Right: 0.73 Left: 0.73 RA/AO RATIO (< 3.5 ) Right: 1.8 Left: 1.8 RENAL ARTERY VELOCITY ( < 180 cm/s) Right: 165.6 Left: 163.0 IMPRESSION: No evidence for renal artery stenosis. [facility], , 03/10/2024 8:41 AM
== END | disposition home or self-care (01) ==
LOC: RADUSWWP 06:56
PROVIDERS: ATTEND Internal Medicine Geriatric Medicine
DX: I10 Essential (primary) hypertension (principal)
CPT/HCPCS: 93975

== ENCOUNTER 2024-05-29 12:04 | Emergency (ER) | payer MEDICARE ==
[2024-05-29 12:23] VITALS: RESP 18; TEMP 97.6
--- NOTE | 2024-05-29 12:44 | ED ---
General Adult HPI - General Chief complaint: Recheck/Abnormal Lab/Rx Stated complaint: high blood pressure Time Seen by Provider: 05/29/24 12:31 Source: patient, RN notes reviewed, old records reviewed Mode of arrival: ambulatory Limitations: no limitations - History of Present Illness Initial comments: 89 yo female who presents for evaluation of elevated blood pressure. Patient has known hypertension. She had recent medication change where she was switched from Norvasc to diltiazem. This was started because of some tachycardia reported by the patient that was seen on a heart monitor by her gypsum block setter. Patient states that since this medication change which was 5 days ago her blood pressure has been increasing and she is developed some mild dyspnea. No chest pain. No significant lower extremity swelling. - Related Data Home Medications Medication Instructions Recorded Confirmed Atorvastatin [Lipitor] 10 mg PO DAILY 02/21/24 02/21/24 Calcium Carbonate/Vitamin D3 1 tab PO HS 02/21/24 02/21/24 [Calcium 600 mg-D3 20 mcg (800 unit)] Multivitamin With Collagen 3 tab PO DAILY 02/21/24 02/21/24 Valsartan [Diovan] 160 mg PO DAILY 02/21/24 02/21/24 Vit C/E/Zn/Coppr/Lutein/Zeaxan 1 cap PO BID 02/21/24 02/21/24 [Preservision Areds 2 Softgel] amLODIPine [Norvasc] 5 mg PO DAILY 02/21/24 02/21/24 hydroCHLOROthiazide [Hydrodiuril] 12.5 mg PO DAILY 02/21/24 02/21/24 lamoTRIgine [LaMICtal] 150 mg PO BID 02/21/24 02/21/24 Previous Rx's Medication Instructions Recorded amLODIPine [Norvasc] 2.5 mg PO DAILY 30 Days #30 tablet 05/29/24 Allergies Allergy/AdvReac Type Severity Reaction Status Date / Time No Known Allergies Allergy Verified 05/29/24 12:23 Review of Systems ROS Statement: Those systems with pertinent positive or pertinent negative responses have been documented in the HPI. ROS Other: All systems not noted in ROS Statement are negative. 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 Absent: tenderness, meningismus Respiratory exam: Present: normal lung sounds bilaterally. Absent: respiratory distress, wheezes Cardiovascular Exam: Present: regular rate, normal rhythm GI/Abdominal exam: Present: soft. Absent: distended, tenderness, guarding Extremities exam: Present: normal inspection, normal capillary refill. Absent: pedal edema Neurological exam: Present: alert, oriented X3, CN II-XII intact. Absent: motor sensory deficit Psychiatric exam: Present: normal affect, normal mood Skin exam: Present: warm, dry, intact. Absent: cyanosis, diaphoretic Course Vital Signs 05/29/24 05/29/24 12:20 13:34 Temperature 97.6 F Pulse Rate 99 76 Respiratory 18 18 Rate Blood Pressure 182/86 166/71 O2 Sat by Pulse 97 98 Oximetry Medical Decision Making - Medical Decision Making Was pt. sent in by a medical professional or institution ([facility], [facility]ITICAL CARE PAR[facility], urgent care, hospital, or custodial...) When possible be specific @ -No Did you speak to anyone other than the patient for history (EMS, parent, family, police, friend...)? What history was obtained from this source @ -No Did you review nursing and triage notes (agree or disagree)? Why? @ -I reviewed and agree with nursing and triage notes Were old charts reviewed (outside hosp., previous admission, EMS record, old EKG, old radiological studies, urgent care reports/EKG's, custodial records)? Report findings @ -No old charts were reviewed Differential Weakness: Hypoglycemia, shock, sepsis, hyponatremia, anemia, infection, MS, ETOH, adverse medicine reaction, overdose, stroke, this is not meant to be an all-inclusive list. EKG interpreted by me (3pts min.). @ -Sinus rhythm rate of 81, MT interval 193, QRS duration 81, QTc [address] segment elevation. X-rays interpreted by me (1pt min.). @ -Chest x-ray negative for acute cardiopulmonary CT interpreted by me (1pt min.). @ -None done U/S interpreted by me (1pt. min.). @ -None done What testing was considered but not performed or refused? (CT, X-rays, U/S, labs)? Why? @ -None What meds were considered but not given or refused? Why? @ -None Did you discuss the management of the patient with other professionals (professionals i.e. , PA, CRITICAL CARE PARAMEDIC, lab, RT, psych nurse, group social worker, paginator, teacher, [employer] officer, pillowcase cleaner)? Give summary @ -No Was smoking cessation discussed for >3mins.? @ -No Was critical care preformed (if so, how long)? @ -No Were there social determinants of health that impacted care today? How? (Homelessness, low income, unemployed, alcoholism, drug addiction, carroll sportation, low edu. Level, literacy, decrease access to med. care, skilled nursing, rehab)? @ -No Was there de-escalation of care discussed even if they declined (Discuss DNR or withdrawal of care, Hospice)? DNR status @ -No What co-morbidities impacted this encounter? (DM, HTN, Smoking, COPD, CAD, Cancer, CVA, ARF, Chemo, Hep., AIDS, mental health diagnosis, sleep apnea, morbid obesity)? @ -Hypertension Was patient admitted / discharged? Hospital course, mention meds given and route, prescriptions, significant lab abnormalities, going to OR and other pertinent info. @89-year-old presenting with elevated blood pressure. No chest pain no headache. No specific complaints other than just not feeling well. Patient's EKG is sinus rhythm. Chest x-ray is clear. She has normal CBC, normal CMP, negative troponin. Her blood pressure is downtrending in the emergency department. Given the recent medication change I will reinitiate half dose of her previous amlodipine which was 5 mg, starting 2.5 mg and she will monitor her blood pressure closely and follow-up with her gypsum block setter. Undiagnosed new problem with uncertain prognosis? @ -No Drug Therapy requiring intensive monitoring for toxicity (Heparin, Nitro, Insulin, Cardizem)? @ -No Were any procedures done? @ -No Diagnosis/symptom? @ -Hypertension Acute, or Chronic, or Acute on Chronic? @ -Chronic Uncomplicated (without systemic symptoms) or Complicated (systemic symptoms)? @ -Default Side effects of treatment? @ -No Exacerbation, Progression, or Severe Exacerbation? @ -No Poses a threat to life or bodily function? How? (Chest pain, USA, MS, pneumonia, PE, COPD, DKA, ARF, appy, cholecystitis, CVA, Diverticulitis, Homicidal, Suicidal, threat to staff... and all critical care pts) @ -Low risk at this time - Lab Data Result diagrams: 05/29/24 12:44 05/29/24 12:44 Lab Results 05/29/24 05/29/24 05/29/24 Range/Units 12:44 12:44 12:44 WBC 8.2 (3.8-10.6) k/uL RBC 4.52 (3.80-5.40) m/uL Hgb 13.7 (11.4-16.0) gm/dL Hct 41.1 (34.0-46.0) % MCV 90.9 (80.0-100.0) fL MCH 30.3 (25.0-35.0) pg MCHC 33.4 (31.0-37.0) g/dL RDW 13.3 (11.5-15.5) % Plt Count 220 (150-450) k/uL MPV 7.0 Neutrophils % 73 % Lymphocytes % 19 % Monocytes % 6 % Eosinophils % 1 % Basophils % 0 % Neutrophils # 6.0 (1.3-7.7) k/uL Lymphocytes # 1.6 (1.0-4.8) k/uL Monocytes # 0.5 (0-1.0) k/uL Eosinophils # 0.1 (0-0.7) k/uL Basophils # 0.0 (0-0.2) k/uL PT 10.6 (10.0-12.5) sec INR 0.9 (<1.2) APTT 22.4 (22.0-30.0) sec Sodium 139 (137-145) mmol/L Potassium 3.7 (3.5-5.1) mmol/L Chloride 101 (98-107) mmol/L Carbon Dioxide 30 (22-30) mmol/L Anion Gap 8 mmol/L BUN 16 (7-17) mg/dL Creatinine 0.72 (0.52-1.04) mg/dL Est GFR (CKD-EPI)AfAm 87 (>60 ml/min/1.73 sqM) Est GFR (CKD-EPI)NonAf 75 (>60 ml/min/1.73 sqM) Glucose 101 H (74-99) mg/dL Calcium 10.0 (8.4-10.2) mg/dL Total Bilirubin 0.6 (0.2-1.3) mg/dL AST 21 (14-36) U/L ALT 16 (4-34) U/L Alkaline Phosphatase 115 (38-126) U/L Troponin I (0.000-0.034) ng/mL NT-Pro-B Natriuret Pep 539 pg/mL Total Protein 6.6 (6.3-8.2) g/dL Albumin 4.6 (3.5-5.0) g/dL 05/29/24 Range/Units 12:44 WBC (3.8-10.6) k/uL RBC (3.80-5.40) m/uL Hgb (11.4-16.0) gm/dL Hct (34.0-46.0) % MCV (80.0-100.0) fL MCH (25.0-35.0) pg MCHC (31.0-37.0) g/dL RDW (11.5-15.5) % Plt Count (150-450) k/uL MPV Neutrophils % % Lymphocytes % % Monocytes % % Eosinophils % % Basophils % % Neutrophils # (1.3-7.7) k/uL Lymphocytes # (1.0-4.8) k/uL Monocytes # (0-1.0) k/uL Eosinophils # (0-0.7) k/uL Basophils # (0-0.2) k/uL PT (10.0-12.5) sec INR (<1.2) APTT (22.0-30.0) sec Sodium (137-145) mmol/L Potassium (3.5-5.1) mmol/L Chloride (98-107) mmol/L Carbon Dioxide (22-30) mmol/L Anion Gap mmol/L BUN (7-17) mg/dL Creatinine (0.52-1.04) mg/dL Est GFR (CKD-EPI)AfAm (>60 ml/min/1.73 sqM) Est GFR (CKD-EPI)NonAf (>60 ml/min/1.73 sqM) Glucose (74-99) mg/dL Calcium (8.4-10.2) mg/dL Total Bilirubin (0.2-1.3) mg/dL AST (14-36) U/L ALT (4-34) U/L Alkaline Phosphatase (38-126) U/L Troponin I <0.012 (0.000-0.034) ng/mL NT-Pro-B Natriuret Pep pg/mL Total Protein (6.3-8.2) g/dL Albumin (3.5-5.0) g/dL Disposition Clinical Impression: Hypertension Disposition: HOME SELF-CARE Condition: Fair Instructions (If sedation given, give patient instructions): Hypertension (ED) Prescriptions: amLODIPine [Norvasc] 2.5 mg PO DAILY 30 Days #30 tablet Is patient prescribed a controlled substance at d/c from ED?: No Referrals: Philip Whitehead MD [Primary Care Provider] - 1-2 days Denilson Wade DO [STAFF PHYSICIAN] - 1-2 days Time of Disposition: 13:56
[2024-05-29 13:06] LABS: Basophils % (A) 0 %; Eosinophils # (A) 0.1 k/uL (0-0.7); Eosinophils % (A) 1 %; HCT 41.1 % (34.0-46.0); HGB 13.7 gm/dL (11.4-16.0); Lymphocytes # (A) 1.6 k/uL (1.0-4.8); Lymphocytes % (A) 19 %; MCH 30.3 pg (25.0-35.0); MCHC 33.4 g/dL (31.0-37.0); MCV 90.9 fL (80.0-100.0); Monocytes # (A) 0.5 k/uL (0-1.0); Monocytes % (A) 6 %; Neutrophils % (A) 73 %; Platelet Count 220 k/uL (150-450); RBC 4.52 m/uL (3.80-5.40); RDW 13.3 % (11.5-15.5); WBC 8.2 k/uL (3.8-10.6)
--- NOTE | 2024-05-29 13:09 | XR ---
EXAMINATION TYPE: XR chest 2V DATE OF EXAM: 05/29/2024 12:56 PM COMPARISON: CTA chest December 04, 2020 CLINICAL INDICATION: Female, 89 years old with history of difficulty breathing, TECHNIQUE: Frontal and lateral views of the chest are obtained. FINDINGS: There is no focal air space opacity, pleural effusion, or pneumothorax seen. The cardiac silhouette size is within normal limits with atherosclerotic thoracic aorta. Slight scoliotic curvatu re redemonstrated. IMPRESSION: No acute process. [facility], , 05/29/2024 1:07 PM
[2024-05-29 13:18] LABS: ALT 16 U/L (4-34); AST 21 U/L (14-36); African American GFR (CKD) 87 (>60 ml/min/1.73 sqM); Albumin 4.6 g/dL (3.5-5.0); Alkaline Phosphatase 115 U/L (38-126); Anion Gap 8 mmol/L; Blood Urea Nitrogen 16 mg/dL (7-17); Carbon Dioxide 30 mmol/L (22-30); Chloride 101 mmol/L (98-107); Glucose 101 mg/dL (74-99); Non-African American GFR(CKD) 75 (>60 ml/min/1.73 sqM); Potassium 3.7 mmol/L (3.5-5.1); Sodium 139 mmol/L (137-145); Total Bilirubin 0.6 mg/dL (0.2-1.3); Total Protein 6.6 g/dL (6.3-8.2)
[2024-05-29 13:25] LABS: NT-Pro-B-Type Natriuretic Pept 539 pg/mL
[2024-05-29 13:34] VITALS: PULSE 76
[2024-05-29 13:34] LABS: INR 0.9 (<1.2); Partial Thromboplastin Time 22.4 sec (22.0-30.0); Prothrombin Time 10.6 sec (10.0-12.5)
[2024-05-29 14:06] VITALS: BP 151/96
== END 2024-05-29 14:07 | disposition home or self-care (01) ==
LOC: EC 12:04
DX: I10 Essential (primary) hypertension (principal)
CPT/HCPCS: 36415; 71046; 80053; 83880; 84484; 85025; 85610; 85730; 93005; 99284